=== PATIENT | female | born 1980 | race Caucasian/White ===

== ENCOUNTER → 2018-07-04 | Outpatient (REF) ==
--- NOTE | 2018-07-04 14:09 | REP ---
LUMBOSACRAL SPINE: AP and lateral views of the lumbosacral spine are performed with three total views obtained. There is no compression fracture. There is mild anterior spondylolisthesis of L5 on S1 which appears to be due to posterior facet arthropathy with no definite evidence of spondylolysis. There is mild diffuse spurring. There is mild disc space narrowing and subchondral sclerosis at L5-S1 disc space. There is sclerosis at the posterior facet joints diffusely. The posterior elements are intact. 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 IMPRESSION: Mild degenerative changes as above. Electronically Signed by Ck Lerma MD 07/04/2018 02:18 P
== END ==
LOC: M SMT 13:11
PROVIDERS: ATTEND Internal Medicine
DX: Z00.00 Encounter for general adult medical examination without abnormal findings (principal)

== ENCOUNTER → 2024-07-17 | Outpatient (REF) | LOC: M PLAIMG 12:38 | PROVIDERS: ATTEND Internal Medicine | DX: M19.90 Unspecified osteoarthritis, unspecified site (principal); M54.50 Low back pain, unspecified; Z90.49 Acquired absence of other specified parts of digestive tract ==